=== PATIENT | male | born 1980 | race Caucasian/White ===

== ENCOUNTER 2019-07-20 15:46 | Emergency (ER) | payer SELFPAY ==
[~2019-07-20] VITALS: Ht 177.8 cm; Wt 102.5 kg
--- OUTSIDE RECORDS SUMMARY | 2019-07-20 15:49 | XMS REPORT ---
Author Author [facility] Address Unknown Phone Unavailable Care Team Providers Care Clinical Partner Name Role Phone Unavailable Unavailable Payers Payer Name Policy Type Policy Number Effective Date Expiration Date Problems This patient has no known problems. Allergies, Adverse Reactions, Alerts Allergy Name Allergy Type Status Severity Reaction(s) Onset Date Inactive Date Treating Clinician Comments Sulfa (Sulfonamide Antibiotics) DA Active U 2018-09-05 00:00:00 Sulfa (Sulfonamide Antibiotics) DA Active U 2018-09-04 00:00:00 No Known Drug Intolerances DA Active U 2018-09-04 00:00:00 No Known Drug Intolerances DA Active U 2004-05-21 00:00:00 No Known Contrast Allergies DA Active U 2004-05-21 00:00:00 No Known Drug Allergies DA Active U 2004-05-21 00:00:00 No Known Food Allergies DA Active U 2004-05-21 00:00:00 No Known Other Allergies DA Active U 2004-05-21 00:00:00 Medications This patient has no known medications. Results Test Description Test Time Test Comments Text Results Atomic Results Result Comments - XR FLUORO FOR SPINE INJ 2018-09-05 10:29:00 Patient Name: MONIQUE RANDHAWA Unit No: [id number] EXAMS: CPT CODE: [id number] XR FLUORO FOR SPINE INJ 98911 LUMBAR TRANSFORAMINAL INJECTION REFERRING PHYSICIAN:Dr. Wilmer Shea PREOPERATIVE DIAGNOSIS: Degenerative Lumbar Disc Disease. POSTOPERATIVE DIAGNOSIS: Lumbar radiculopathy PROCEDURES PERFORMED 1. Fluoroscopically guided needle localization of the bilateral L2, bilateral L3 spinal nerve/nerves with transforaminal epidural steroid injection/injections. 2. Transforaminal epidurogram/epidurograms at bilateral L2, bilateral L3. FINDINGS: Good filling of the roots. No provocation Pain relief-100%. ANTIBIOTIC: Cefazolin ESTIMATED BLOOD LOSS: Minimal ANESTHESIA: (TIVA )Total intravenous anesthetic (patient intolerant to sedatives and hypnotics) COMPLICATIONS: None DETAILS OF PROCEDURE: After obtaining stable vital signs, informed consent and IV access, with no known contraindications to proceeding, the patient was taken to the fluoroscopy suite and placed in a prone position with all extremities padded and appropriate monitors placed. A sterile prep and drape was performed over the lumbosacral spine. Using fluoroscopic visualization at each level the insertion site was marked for a paravertebral approach to the foramen. Using standard technique, a 25 gauge needle was advanced to the base of the pedicle. In AP view, final positioning was obtained outside the 6 on the clock position on the pedicle. Then, 1 ml of Isovue-300 contrast was injected to produce the epidurograms. No paresthesias were elicited with needle insertion or injection and there were no signs of intravascular or intrathecal uptake. Then, with 1 ml of 4% lidocaine and 10 mg of triamcinolone was injected incrementally with frequent negative aspirations. There were no signs of intravascular or intrathecal uptake. Each subsequent level was done using the same technique and medications. The patient's vital signs remained stable. The patient was taken to the PACU in good condition. at 1029 Reported and signed by: Ever Garcia M.D. CC: Technologist: Cadence Martinez(R) Transcribed D/ (0078) [email or web address] [facility] NAME: MONIQUE RANDHAWA [address] [facility] [address] PHYS: DOCUD - Doctor,Ever Cat MD [place], [place] [address] : 1980 AGE: 37 SEX: M LOC: RANDAL PHONE #: [phone] EXAM DATE: 09/05/2018 STATUS: REG SD FAX #: [phone] RAD #: D/C DT PAGE 1 Signed Report Patient Name: MONIQUE RANDHAWA Unit No: [id number] EXAMS: CPT CODE: [id number] XR FLUORO FOR SPINE INJ 37431 <Continued> Orig Print D/T: S: 09/05/2018 (1032) [facility] NAME: MONIQUE RANDHAWA [address] [facility] PHYS: DOCUD - Doctor,Ever Cat MD [place], [place] [address] : 1980 AGE: 37 SEX: M LOC: RANDAL PHONE #: [phone] EXAM DATE: 09/05/2018 [place]US: [place] [facility] [place]: [phone] RAD #: D/C DT PAGE 2 Signed Report
[2019-07-20] MEDS ORDERED: HYDRALAZINE HCL 20 MG/ML VIAL IV STA (16:14)
[2019-07-20] MEDS ORDERED: LABETALOL HCL 5 MG/ML 20ML VIAL IV STA ×2 (16:15→19:07)
[2019-07-20] MEDS ORDERED: ASPIRIN 81 MG CHEW TAB PO ONE (16:15)
--- NOTE | 2019-07-20 16:48 | Diagnostic Imaging Report ---
EXAMINATION: PA and lateral views of the chest. COMPARISON: None CLINICAL HISTORY: Elevated blood pressure DISCUSSION: Lines/tubes: None. Lungs: The lungs are well inflated and clear. No pneumonia or pulmonary edema. Left upper lobe calcified granuloma. Pleura: No pleural effusion or pneumothorax. Heart and mediastinum: The cardiomediastinal silhouette is normal. Bones and soft tissues: No acute bony abnormalities. IMPRESSION: No acute cardiopulmonary abnormalities. Signed by: Dr. Tino Day M.D. on 07/20/2019 4:47 PM
[2019-07-20 17:33] LABS: BASOPHILS # (AUTO) 0.1 (0.0-0.1); BASOPHILS % 0.4 % (0.0-1.0); EOSINOPHILS # (AUTO) 0.2 (0.0-0.4); EOSINOPHILS % 1.3 % (0.0-6.0); HEMATOCRIT 44.6 % (38.2-49.6); HEMOGLOBIN 14.8 g/dL (14.0-18.0); LYMPHOCYTES # (AUTO) 2.6 (1.0-3.2); LYMPHOCYTES % 21.6 % (18.0-39.1); MEAN CORPUSCULAR HEMOGLOBIN 28.1 pg (28-32); MEAN CORPUSCULAR HGB CONC 33.2 g/dL (31-35); MEAN CORPUSCULAR VOLUME 84.8 fL (81-99); MONOCYTES # (AUTO) 1.4 (0.2-0.8); MONOCYTES % 11.1 % (4.4-11.3); NEUTROPHILS % 65.1 % (38.7-80.0); PLATELET COUNT 292 x10e3/uL (140-360); RED BLOOD COUNT 5.26 x10e6/uL (4.3-5.7); RED CELL DISTRIBUTION WIDTH 12.9 % (11.7-14.4)
[2019-07-20 17:41] LABS: INR 0.85; PROTHROMBIN TIME 12.1 seconds (11.9-14.5)
[2019-07-20 17:42] LABS: PARTIAL THROMBOPLASTIN TIME 28.6 seconds (23.8-35.5)
[2019-07-20 17:51] LABS: ALANINE AMINOTRANSFERASE 56 IU/L (0-55); ALBUMIN 4.4 g/dL (3.5-5.0); ALBUMIN/GLOBULIN RATIO 1.1 (0.8-2.0); ALKALINE PHOSPHATASE 96 IU/L (40-150); BLOOD UREA NITROGEN 12 mg/dL (7-26); BUN/CREATININE RATIO 10 (6-25); CALCIUM 9.6 mg/dL (8.4-10.2); CARBON DIOXIDE 28 mmol/L (22-29); CHLORIDE 100 mmol/L (98-107); CREATINE KINASE 69 IU/L (30-200); EST GLOMERULAR FILTRATION RATE > 60 ML/MIN (60-); GLUCOSE 96 mg/dL (74-118); MAGNESIUM 2.3 MG/DL (1.3-2.1); SODIUM 141 mmol/L (136-145)
[2019-07-20 17:52] LABS: AMPHETAMINES SCREEN,URINE NEGATIVE (NEGATIVE); BENZODIAZEPINES SCREEN,URINE NEGATIVE (NEGATIVE); PHENCYCLIDINE SCREEN,URINE NEGATIVE (NEGATIVE)
[2019-07-20 18:12] LABS: THYROID STIMULATING HORMONE 2.753 uIU/mL (0.350-4.940)
[2019-07-20 18:33] LABS: INFLUENZAE A&B ANTIGEN (RAPID) NEGATIVE (NEGATIVE)
[2019-07-20 18:34] LABS: STREPTOCOCCUS GRP A ANTIGEN NEGATIVE (NEGATIVE)
--- NOTE | 2019-07-20 19:15 | NUR ---
report given to Ivana TAYLOR
[2019-07-20 21:00] VITALS: BP 154/108
== END 2019-07-20 21:02 | disposition home or self-care (01) ==
LOC: ER 15:46
DX: I16.9 Hypertensive crisis, unspecified (principal); I10 Essential (primary) hypertension; J20.9 Acute bronchitis, unspecified
CPT/HCPCS: 36415; 71046; 80053; 80307; 82550; 82553; 83518; 83735; 84443; 84484; 85025; 85379; 85610; 85730; 87070; 87400; 93005; 99284; J3490

== ENCOUNTER 2019-12-16 21:15 | Emergency (ER) | payer SELFPAY ==
[~2019-12-16] VITALS: Ht 177.8 cm; Wt 104.3 kg
[2019-12-16] MEDS ORDERED: SODIUM CHLORIDE 0.9% 1000ML 1,000 ML IV STA (23:21)
[2019-12-16] MEDS ORDERED: ONDANSETRON HCL INJ 2MG/ML 2ML 2 MG/ML VIAL IV STA (23:23)
--- NOTE | 2019-12-16 23:25 | Emergency Department Note ---
History of Present Illnes History of Present Illness Chief Complaint: Abdominal Complaints History of Present Illness This is a 39 year old male presents to the ED for n/v with black stools. Denies abdominal pain. reports bilious emesis. Historian: Patient Arrival Mode: Car Duration (how long): day(s) (4) Timing of current episode: constant Progression: worsening Chronicity: new Relieving factors: none Exacerbating factors: none Associated symptoms: Reports fever/chills, Reports nausea/vomiting Treatments prior to arrival: none Past Medical/Family History Physician Review I have reviewed the patient's past medical and family history. Any updates have been documented here. Past Medical History Past Medical History: None Past Surgical History: Back Surgery Social History Smoking Cessation: Never Smoker Alcohol Use: Occasional Any Illegal Drug Use: No Review of Systems Review of Systems Constitutional: Reports fever EENTM: Reports no symptoms Cardiovascular: Reports no symptoms Respiratory: Reports no symptoms Gastrointestinal: Reports nausea, Reports vomiting Genitourinary: Reports no symptoms Musculoskeletal: Reports no symptoms Integumentary: Reports no symptoms Neurological: Reports no symptoms Psychological: Reports no symptoms Endocrine: Reports no symptoms Hematological/Lymphatic: Reports no symptoms Physical Exam Related Data Allergies: Coded Allergies: Sulfa (Sulfonamide Antibiotics) (Verified Allergy, Intermediate, 07/20/19) Triage Vital Signs Vital Signs Date Time Temp Pulse Resp B/P (MAP) Pulse Ox O2 Delivery O2 Flow Rate FiO2 12/16/19 23:18 98.6 100 18 151/96 100 Room Air Vital signs reviewed: Yes Physical Exam CONSTITUTIONAL Constitutional: Present obese, Present diaphoretic HENT HENT: Present normocephalic, Present atraumatic, Present oropharynx clear/moist, Present nose normal HENT L/R: Present left ext ear normal, Present right ext ear normal EYES Eyes: Reports PERRL, Reports conjunctivae normal NECK Neck: Present ROM normal PULMONARY Pulmonary: Present effort normal, Present breath sounds normal CARDIOVASCULAR Cardiovascular: Present heart sounds normal, Present tachycardia GASTROINTESTINAL Abdominal: Present soft, Present nontender, Present bowel sounds normal GENITOURINARY Genitourinary: Present exam deferred SKIN Skin: Present warm, Present dry MUSCULOSKELETAL Musculoskeletal: Present ROM normal NEUROLOGICAL Neurological: Present alert, Present oriented x 3, Present no gross motor or sensory deficits PSYCHOLOGICAL Psychological: Present mood/affect normal, Present judgement normal Results Laboratory Lab results reviewed: Yes Laboratory comments Laboratory Tests Test 12/17/19 00:30 12/16/19 23:30 Urine Color Yellow (YELLOW) Urine Clarity Clear (CLEAR) Urine pH 6 (5 - 7) Urine Specific [place] 1.020 (1.010-1.025) Urine Protein Negative (NEGATIVE) Urine Glucose (UA) Negative (NEGATIVE) Urine Ketones Trace (NEGATIVE) Urine Blood Negative (NEGATIVE) Urine Nitrite Negative (NEGATIVE) Urine Bilirubin Negative (NEGATIVE) Urine Urobilinogen 0.2 mg/dL (0.2 - 1) Urine Leukocyte Esterase Negative (NEGATIVE) Urine RBC 0-5 /HPF (0-5) Urine WBC 6-10 /HPF (0-5) Urine Epithelial Cells Few /LPF (NONE) Urine Bacteria Few /HPF (NONE) White Blood Count 7.26 x10e3/uL (4.8-10.8) Red Blood Count 5.34 x10e6/uL (4.3-5.7) Hemoglobin 15.1 g/dL (14.0-18.0) Hematocrit 45.8 % (38.2-49.6) Mean Corpuscular Volume 85.8 fL (81-99) Mean Corpuscular Hemoglobin 28.3 pg (28-32) Mean Corpuscular Hemoglobin Concent 33.0 g/dL (31-35) Red Cell Distribution Width 13.2 % (11.7-14.4) Platelet Count 270 x10e3/uL (140-360) Neutrophils (%) (Auto) 58.3 % (38.7-80.0) Lymphocytes (%) (Auto) 31.7 % (18.0-39.1) Monocytes (%) (Auto) 9.0 % (4.4-11.3) Eosinophils (%) (Auto) 0.4 % (0.0-6.0) Basophils (%) (Auto) 0.3 % (0.0-1.0) Neutrophils # (Auto) 4.2 (2.1-6.9) Lymphocytes # (Auto) 2.3 (1.0-3.2) Monocytes # (Auto) 0.7 (0.2-0.8) Eosinophils # (Auto) 0.0 (0.0-0.4) Basophils # (Auto) 0.0 (0.0-0.1) Absolute Immature Granulocyte (auto 0.02 x10e3/uL (0-0.1) Sodium Level 139 mmol/L (136-145) Potassium Level 3.7 mmol/L (3.5-5.1) Chloride Level 101 mmol/L (98-107) Carbon Dioxide Level 28 mmol/L (22-29) Anion Gap 15.7 mmol/L (8-16) Blood Urea Nitrogen 15 mg/dL (7-26) Creatinine 1.12 mg/dL (0.72-1.25) Estimat Glomerular Filtration Rate > 60 ML/MIN (60-) BUN/Creatinine Ratio 13 (6-25) Glucose Level 100 mg/dL (74-118) Calcium Level 9.3 mg/dL (8.4-10.2) Total Bilirubin 0.4 mg/dL (0.2-1.2) Aspartate Amino Transf (AST/SGOT) 53 IU/L (5-34) Alanine Aminotransferase (ALT/SGPT) 94 IU/L (0-55) Alkaline Phosphatase 85 IU/L (40-150) Total Protein 8.1 g/dL (6.5-8.1) Albumin 4.3 g/dL (3.5-5.0) Globulin 3.8 g/dL (2.3-3.5) Albumin/Globulin Ratio 1.1 (0.8-2.0) Lipase 49 U/L (8-78) Imaging Imaging results reviewed: Yes Impressions [place] [address] Patient Name: MONIQUE RANHDAWA MR #: [id number] : 1980 Age/Sex: 39/M Req #: [id number] Adm Physician: Ordered by: HANK MALCOLM DO Report #: [id number] Location: ER Room/Bed: Procedure: [id number] CT/CT ABDOMEN/PELVIS W Exam Date: 12/17/19 Exam Time: 0120 REPORT STATUS: Signed EXAM: CT Abdomen and Pelvis WITH contrast INDICATION: GI bleed, nausea, vomiting, , black stools COMPARISON: None. TECHNIQUE: Abdomen and pelvis were scanned utilizing a multidetector helical scanner from the lung base to the pubic symphysis after administration of IV contrast. Coronal and sagittal reformations were obtained. Routine protocol was performed. Scan was performed when during portal venous phase. IV CONTRAST: 100 mL of Isovue 370 ORAL CONTRAST: None COMPLICATIONS: None RADIATION DOSE: Total DLP: 632 mGy*cm Estimated effective dose: (DLP x 0.015 x size factor) mSv CTDIvol has been reviewed. It is below the limits set by the Radiation Protocol Committee (RPC). Dose modulation, iterative reconstruction, and/or weight based adjustment of the mA/kV was utilized to reduce the radiation dose to as low as reasonably achievable. FINDINGS: LINES and TUBES: None. LOWER THORAX: Unremarkable HEPATOBILIARY: A 1.7 cm benign-appearing left adrenal hypodensity/fluid density, no follow-up required. Decreased hepatic parenchymal attenuation relative to the spleen. No biliary ductal dilation. GALLBLADDER: No radio-opaque stones or sludge. No wall thickening. SPLEEN: No splenomegaly. PANCREAS: No focal masses or ductal dilatation. ADRENALS: No adrenal nodules KIDNEYS/URETERS: Kidneys enhance symmetrically. No hydronephrosis. No solid mass lesions. Simple right renal cyst. Nonobstructive 7 mm right renal superior pole, close. GI TRACT: No abnormal distention, wall thickening, or evidence of bowel obstruction. Appendix is normal. PELVIC ORGANS/BLADDER: Unremarkable. LYMPH NODES: No lymphadenopathy. VESSELS: Unremarkable. PERITONEUM / RETROPERITONEUM: No free air or fluid. BONES: Lower lumbar laminectomies and fixation hardware, appears intact. SOFT TISSUES: Unremarkable. IMPRESSION: 1. No findings to explain reported symptoms. 2. Low right heart volume can be due to hypovolemia. 3. Suspect hepatic steatosis. Signed by: Carl Reece DO on 12/17/2019 2:55 AM Dictated By: CARL REECE DO 4 Transcribed By: PABLO on 12/17/19254 COPY TO: HANK MALCOLM DO~ Assessment & Plan Medical Decision Making MDM 39 yom withn/v with possible melanotic stools. CBC, CMP, UA and CTS ordered to r/o appendicitis, diverticulitis, UTI, kidney stone, perforated viscus, obstruction, ischemia, Gastrointestinal bleed, COVID-19 infection and biliary pathology Assessment & Plan Final Impression: (1) Nausea & vomiting Depart Disposition: HOME, SELF-CARE HANK MALCOLM DO Dec 16, 2019 23:25
[2019-12-17 00:02] LABS: BASOPHILS % 0.3 % (0.0-1.0); EOSINOPHILS % 0.4 % (0.0-6.0); HEMATOCRIT 45.8 % (38.2-49.6); HEMOGLOBIN 15.1 g/dL (14.0-18.0); LYMPHOCYTES # (AUTO) 2.3 (1.0-3.2); LYMPHOCYTES % 31.7 % (18.0-39.1); MEAN CORPUSCULAR HEMOGLOBIN 28.3 pg (28-32); MEAN CORPUSCULAR VOLUME 85.8 fL (81-99); MONOCYTES # (AUTO) 0.7 (0.2-0.8); NEUTROPHILS # (AUTO) 4.2 (2.1-6.9); NEUTROPHILS % 58.3 % (38.7-80.0); PLATELET COUNT 270 x10e3/uL (140-360); RED BLOOD COUNT 5.34 x10e6/uL (4.3-5.7); RED CELL DISTRIBUTION WIDTH 13.2 % (11.7-14.4)
[2019-12-17 00:12] LABS: ALANINE AMINOTRANSFERASE 94 IU/L (0-55); ALBUMIN 4.3 g/dL (3.5-5.0); ALBUMIN/GLOBULIN RATIO 1.1 (0.8-2.0); ALKALINE PHOSPHATASE 85 IU/L (40-150); BLOOD UREA NITROGEN 15 mg/dL (7-26); BUN/CREATININE RATIO 13 (6-25); CALCIUM 9.3 mg/dL (8.4-10.2); CARBON DIOXIDE 28 mmol/L (22-29); CREATININE, SERUM 1.12 mg/dL (0.72-1.25); EST GLOMERULAR FILTRATION RATE > 60 ML/MIN (60-); GLUCOSE 100 mg/dL (74-118)
[2019-12-17 00:21] LABS: ANION GAP 15.7 mmol/L (8-16); CHLORIDE 101 mmol/L (98-107); POTASSIUM 3.7 mmol/L (3.5-5.1); SODIUM 139 mmol/L (136-145)
[2019-12-17 01:07] LABS: BILIRUBIN,URINE NEGATIVE (NEGATIVE); CLARITY,URINE CLEAR (CLEAR); COLOR,URINE YELLOW (YELLOW); KETONES,URINE TRACE (NEGATIVE); LEUKOCYTE ESTERASE ,URINE NEGATIVE (NEGATIVE); NITRITE,URINE NEGATIVE (NEGATIVE); PROTEIN,URINE DIPSTICK NEGATIVE (NEGATIVE); URINE UROBILINOGEN 0.2 mg/dL (0.2 - 1)
[2019-12-17 01:13] LABS: BACTERIA,URINE FEW /HPF; EPITHELIAL CELLS,URINE FEW /LPF; RBC,URINE 0-5 /HPF (0-5)
--- NOTE | 2019-12-17 02:58 | Diagnostic Imaging Report ---
EXAM: CT Abdomen and Pelvis WITH contrast INDICATION: GI bleed, nausea, vomiting, , black stools COMPARISON: None. TECHNIQUE: Abdomen and pelvis were scanned utilizing a multidetector helical scanner from the lung base to the pubic symphysis after administration of IV contrast. Coronal and sagittal reformations were obtained. Routine protocol was performed. Scan was performed when during portal venous phase. IV CONTRAST: 100 mL of Isovue 370 ORAL CONTRAST: None COMPLICATIONS: None RADIATION DOSE: Total DLP: 632 mGy*cm Estimated effective dose: (DLP x 0.015 x size factor) mSv CTDIvol has been reviewed. It is below the limits set by the Radiation Protocol Committee (RPC). Dose modulation, iterative reconstruction, and/or weight based adjustment of the mA/kV was utilized to reduce the radiation dose to as low as reasonably achievable. FINDINGS: LINES and TUBES: None. LOWER THORAX: Unremarkable HEPATOBILIARY: A 1.7 cm benign-appearing left adrenal hypodensity/fluid density, no follow-up required. Decreased hepatic parenchymal attenuation relative to the spleen. No biliary ductal dilation. GALLBLADDER: No radio-opaque stones or sludge. No wall thickening. SPLEEN: No splenomegaly. PANCREAS: No focal masses or ductal dilatation. ADRENALS: No adrenal nodules KIDNEYS/URETERS: Kidneys enhance symmetrically. No hydronephrosis. No solid mass lesions. Simple right renal cyst. Nonobstructive 7 mm right renal superior pole, close. GI TRACT: No abnormal distention, wall thickening, or evidence of bowel obstruction. Appendix is normal. PELVIC ORGANS/BLADDER: Unremarkable. LYMPH NODES: No lymphadenopathy. VESSELS: Unremarkable. PERITONEUM / RETROPERITONEUM: No free air or fluid. BONES: Lower lumbar laminectomies and fixation hardware, appears intact. SOFT TISSUES: Unremarkable. IMPRESSION: 1. No findings to explain reported symptoms. 2. Low right heart volume can be due to hypovolemia. 3. Suspect hepatic steatosis. Signed by: Carl Reece DO on 12/17/2019 2:55 AM
[2019-12-17] MEDS ORDERED: SODIUM CHLORIDE 0.9% 50ML 50 ML ONE (03:07)
[2019-12-17] MEDS ORDERED: IOPAMIDOL 370 MG/ML 200 ML INFUS..BTL INJ ONE (03:07)
[2019-12-17 03:46] VITALS: BP 167/95
== END 2019-12-17 03:33 | disposition home or self-care (01) ==
LOC: ER 21:45
DX: R11.2 Nausea with vomiting, unspecified (principal)
CPT/HCPCS: 36415; 74177; 80053; 81001; 83690; 85025; 96374; 99284; J2405; J7030; Q9967